=== PATIENT | male | born 1960 | race African-American/Black ===

== ENCOUNTER 2016-09-06 13:51 | Emergency (ER) | payer SELFPAY ==
[2016-09-06 15:49] VITALS: BP 160/97; PULSE 76; TEMP 98.1; BMI 25.7
--- NOTE | 2016-09-06 15:56 | EDPRACDOC ---
- General Information Chief Complaint: Thigh Pain Stated Complaint: R LEG PAIN Time Seen by Provider: 09/06/16 15:49 Information Source: Patient Mode Of Arrival: Car Home Medications: Home Medications Albuterol Sulfate [Proventil Hfa] 2 puff INH QID PRN #1 inh 04/15/15 Aspirin (Enteric Coated) [Halfprin] 81 mg PO DAILY #90 tab 04/15/15 Omeprazole 40 mg PO DAILY #30 capsule. 04/15/15 Cyclobenzaprine HCl [Flexeril] 10 mg PO TID #14 tablet 09/06/16 Hydrocodone Bit/Acetaminophen [Hydrocodon-Acetaminophen 5-325] 1 tab PO Q6H PRN #14 tab 09/06/16 Prednisone [Deltasone] 20 mg PO BID #12 tablet 09/06/16 Allergies/Adverse Reactions: Allergies Allergy/AdvReac Type Severity Reaction Status Date / Time No Known Allergies Allergy Verified 09/06/16 15:52 - History of Present Illness Onset: 2 weeks HPI: PT C/O RIGHT LOWER BACK HIP AND LEG PAIN THAT DOESNT GO PAST HIS RIGHT KNEE. Mechanism: Reports: Unknown Circumstances: Reports: Unknown History of: Reports: None Last Tetanus: Unknown Severity: Reports: Mild, Moderate Able to Bear Weight: Fully Pain In: Reports: Hip (AND RT LOW BACK), Thigh ED Past Medical History - History Reviewed Yes Nurses notes reviewed and agree except as marked Travel Outside of [place] in the Last 3 Months?: No - Patient Medical History Cardiac History: Reports: Stress Test (Negative in office/non spool sander ST approximately 3-4 months ago.). Denies: Coronary Artery Disease, Hypertension, Heart Attack Respiratory History: Denies: COPD (Suspect undiagnosed COPD.) GI/ History: Reports: Kidney Stones (1st episode required lithotripsy x1. 2nd episode resolved spontaneously.), Ulcer (Remote ulcer treated medically.) Musculoskeletal History: Denies: Osteoarthritis Psychological History: Denies: Depression, Substance Use Disorder Systemic History: Denies: Diabetes, Hypothyroidism - Family Medical History Reports: Stroke (Father), Cardiac Disorders (Father from complications of severe a [place] at age 65 (1st TX at age 61)) - Social Medical History Smoking Status: Heavy tobacco smoker (5 or more cigarettes/day or daily pipe/ cigar) Social History: Denies: Substance Use Disorder ETOH: None Substance Abuse: None Lives With: Other Lives In: Home EDM Review of Systems - Review of Systems ROS Negative Except as Marked: Yes All systems reviewed and were negative except as marked Constitutional: No Symptoms Reported. negative: Fever, Chills, Weakness, Fatigue, Loss of Appetite Eyes: No Symptoms Reported. negative: Redness, Blurred Vision, Double Vision, Discharge, Pain, Light Sensitive, Photophobia Ears: No Symptoms Reported. negative: Pain, Hearing Loss, Drainage, Ear Pulling Throat: No Symptoms Reported. negative: Pain, Swelling Nose: No Symptoms Reported. negative: Congestion, Bleeding, Discharge, Injection, Swelling, Deformity, Ecchymosis, Tender, Abrasion, Laceration Mouth: No Symptoms Reported. negative: Pain, Drooling Respiratory: No Symptoms Reported. negative: Cough, Brassy Cough, Barky Cough, Shortness of Breath, Wheezing, Hemoptysis Cardiovascular: No Symptoms Reported. negative: Chest Pain, Palpitations, Syncope, Edema, Orthopnea, PND, Skin Mottling, Cyanosis Gastrointestinal: No Symptoms Reported. negative: Pain, Constipation, Nausea, Vomiting, Diarrhea, Melena, Formula Intolerance Genitourinary: No Symptoms Reported. negative: Dysuria, Hematuria, Frequency, Discharge, Bleeding, Testicular Pain, Neurological: No Symptoms Reported. negative: Headache, Dizziness, Seizure, Numbness, Weakness, Speech Difficulty, Gait Difficulty Musculoskeletal: Back (RT LOW PT STATES PAIN RADIATES DOWN BUTTOCK HIP AND THIGH ON RIGHT), Hip (AND THIGH). negative: Arm, Ankle, Chestwall, Elbow, Forearm, Femur, Foot, Hand, Knee, Leg, Neck, Pelvis, Ribs, Shoulder, Wrist Integumentary: No Symptoms Reported. negative: Itching, Rash, Bruising, Wound Allergic/Immunologic: No Symptoms Reported. negative: Hives, Itching Hematologic: No Symptoms Reported. negative: Lymphadenopathy, Easy Bruising, Easy Bleeding Endocrine: No Symptoms Reported. negative: Weight Gain, Weight Loss Psychiatric: No Symptoms Reported. negative: Anxiety, Depression, Hallucinations, Insomnia, Suicidal - Physical Exam Constitutional: No apparent distress, Alert (Awake) Oriented to: Time, Person, Place Last recorded Vital Signs: Last Vital Signs Temp 98.1 F 09/06/16 15:48 Pulse 76 09/06/16 15:48 Resp 18 09/06/16 15:48 BP 160/97 09/06/16 15:48 Pulse Ox 96 09/06/16 15:48 Oxygen Pulse Oxygen Saturation 96 O2 Device Oxygen Flow Rate Fraction of Inspired Oxygen ( FIO2) - HEENT Head: Normal ( normocephalic) Eye Exam: Normal (PERRL, EOMI, Sclera white) Oropharynx: Normal (Pharynx:Moist without exudate,Gums-no swelling) Tympanic Membrane: Normal ENT EAC: Normal TMJ: Normal Nose: No Symptoms Reported (septum midline) Neck: Normal (FROM, trachea at midline) - Respiratory/Cardiovascular Respiratory: Normal - CTA (BBS clear to auscultation without adventitious sounds ) Cardiovascular: Normal (RRR without murmur, gallop or rub) - GI Auscultation: Normal (NABS) Palpation: Normal (Soft,No rebound or guarding, non distended) Tenderness: Non tender Shelton's Sign: Negative - Bladder: Normal - Musculoskeletal Back: Lumbar TTP (MILD ON RIGHT) Extremities: Normal (Normal tone, Pulses 2+ No cyanosis or edema, FROM) - Integumentary Skin: Normal, Warm, Dry Lymphatics: Normal (no adenopathy) - Neurologic Memory Impaired: Normal Motor Function: Normal (Normal tone, Pulses 2+ No cyanosis or edema, FROM) Cranial Nerve: Normal (CN II-X11 intact sensation, strength 5/5) Cerebellar: Normal Mood Description: Normal Perception: Normal - Differential Diagnosis Sprain, Other (LOW BACK STRAIN, BULGING DISC) - Additional Information NO INJURY AT THIS TIME. Decision Time to Discharge: 15:56 - Departure Disposition: Home Condition: Stable Final Diagnosis: Lumbar radiculopathy Acute low back pain Qualifiers: Back pain laterality: right Sciatica presence: with sciatica Sciatica laterality: sciatica of right side Qualified Code(s): M54.41 - Lumbago with sciatica, right side Instructions: Core Strengthening Exercises (GEN), Back Pain, Lumbar Radiculopathy (ED) Education/Counseling Given To: Patient Education/Counseling Given Regarding: Diagnosis, Treatment, Prognosis, Follow Up Referrals: None,No Provider [Primary Care Provider] - One Week Bryn Mathews MD [Staff Physician] - One Week Prescriptions: Cyclobenzaprine HCl [Flexeril] 10 mg PO TID #14 tablet Hydrocodone Bit/Acetaminophen [Hydrocodon-Acetaminophen 5-325] 1 tab PO Q6H PRN #14 tab PRN Reason: Pain Prednisone [Deltasone] 20 mg PO BID #12 tablet Additional Instructions: RETURN FOR WORSE OR DIFFERENT SYMPTOMS.
== END 2016-09-06 16:16 | disposition home or self-care (01) ==
LOC: ED 13:51 → EDMC 16:16
DX: M54.16 Radiculopathy, lumbar region (principal)
CPT/HCPCS: 99282